=== PATIENT | female | born 1990 | race Caucasian/White ===

== ENCOUNTER 2019-06-22 20:35 | Emergency (ER) | payer OTHER ==
[~2019-06-22] VITALS: Ht 162.6 cm; Wt 73.9 kg
[2019-06-22 20:44] VITALS: Ht 162.6 cm; Wt 73.9 kg
[2019-06-22 22:38] LABS: BASOPHIL % 0.4 % (0-2); PLATELET COUNT 311 x10^3mcL (130-400); RED CELL DISTRIBUTION WIDTH 13.3 % (11.5-14.5)
[2019-06-22 23:29] VITALS: BP 120/77
== END 2019-06-22 23:30 | disposition home or self-care (01) ==
LOC: ED 20:35
PROVIDERS: Emergency Medicine
DX: O20.9 Hemorrhage in early pregnancy, unspecified (principal); F17.200 Nicotine dependence, unspecified, uncomplicated; G56.00 Carpal tunnel syndrome, unspecified upper limb; Z3A.01 Less than 8 weeks gestation of pregnancy; Z88.6 Allergy status to analgesic agent
CPT/HCPCS: 36415; 99406

== ENCOUNTER 2019-06-24 18:30 | Emergency (ER) | payer OTHER ==
[~2019-06-24] VITALS: Ht 162.6 cm; Wt 74.4 kg
[2019-06-24 22:52] LABS: UA SPECIFIC GRAVITY 1.025 (1.005-1.035); microscopic required? YES; urine erythrocyte 2+ (NEGATIVE)
[2019-06-24 23:25] VITALS: BP 121/79
== END 2019-06-24 23:25 | disposition home or self-care (01) ==
LOC: ED 18:30
PROVIDERS: Emergency Medicine
DX: Z32.01 Encounter for pregnancy test, result positive (principal); Z98.890 Other specified postprocedural states
CPT/HCPCS: 36415

== ENCOUNTER 2019-08-10 21:11 | Emergency (ER) | payer OTHER ==
[~2019-08-10] VITALS: Ht 165.1 cm; Wt 71.2 kg
[2019-08-10 21:55] LABS: BASOPHIL % 1.4 % (0-2); PLATELET COUNT 279 x10^3mcL (130-400); RED CELL DISTRIBUTION WIDTH 13.2 % (11.5-14.5)
[2019-08-10 23:46] VITALS: BP 115/79
== END 2019-08-10 23:46 | disposition home or self-care (01) ==
LOC: ED 21:11
PROVIDERS: Emergency Medicine
DX: O20.0 Threatened abortion (principal); Z3A.01 Less than 8 weeks gestation of pregnancy; Z88.5 Allergy status to narcotic agent
CPT/HCPCS: 36415; Q0092

== ENCOUNTER 2019-08-11 23:37 | Emergency (ER) | payer OTHER ==
[~2019-08-11] VITALS: Ht 162.6 cm; Wt 75.7 kg
[2019-08-11 23:45] VITALS: BP 129/80
== END 2019-08-12 01:00 | disposition home or self-care (01) ==
LOC: ED 23:37
DX: O20.0 Threatened abortion (principal); Z88.5 Allergy status to narcotic agent

== ENCOUNTER 2020-09-09 09:04 | Emergency (ER) | payer OTHER, SELFPAY ==
[~2020-09-09] VITALS: Ht 170.2 cm; Wt 74.4 kg
[2020-09-09 09:06] VITALS: Ht 170.2 cm; Wt 74.4 kg
[2020-09-09 12:31] VITALS: BP 123/79
== END 2020-09-09 12:31 | disposition home or self-care (01) ==
LOC: ED 09:04
DX: R50.9 Fever, unspecified (principal); Z20.828 Contact with and (suspected) exposure to other viral communicable diseases; Z88.5 Allergy status to narcotic agent
CPT/HCPCS: Q0092; U0003